=== PATIENT | female | born 1995 | race Caucasian/White ===

== ENCOUNTER 2022-02-25 16:50 | Inpatient (IN) ==
[2022-02-25] MEDS ORDERED: Buffered Lidocaine 1% SYRIN 1 ml INTRADERM ONE (17:21)
[2022-02-25] MEDS ORDERED: Lactated Ringers 1000 ml BAG 1,000 ML IV ONE (17:21)
[2022-02-25] MEDS ORDERED: Lactated Ringers 1000 ml BAG 1,000 ML IV SCH (18:00)
[2022-02-25 18:35] LABS: Urine Appearance Clear; Urine Bilirubin Negative (Negative); Urine Blood Negative (Negative); Urine Color Yellow; Urine Glucose Negative (Negative); Urine Ketones Trace (Negative); Urine Nitrite Negative (Negative); Urine Protein Negative (Negative); Urine Specific Gravity 1.014 (1.002-1.030); Urine Urobilinogen Negative (Negative)
[2022-02-25 18:43] LABS: Urine Benzodiazepine Screen None Detected (None Detect); Urine Cannabinoids Screen None Detected (None Detect); Urine Opiates Screen None Detected (None Detect)
[2022-02-25] MEDS ORDERED: Calcium Carb (TUMS) 500 mg CHEW TAB ONE (22:53)
[2022-02-25] MEDS: Calcium Carb (TUMS) 500 mg CHEW TAB PO SCH (22:55)
[2022-02-25] MEDS ORDERED: Nalbuphine 10 MG/ML 1 ML VIAL IV PRN (23:10)
[2022-02-25] MEDS ORDERED: Promethazine INJ(RESTRICTED) 25 MG/ML 1 ml VIAL IV PRN (23:11)
[2022-02-25] MEDS ORDERED: Morphine 10 MG/ML VIAL (1 ml) IV ONE (23:40)
[2022-02-26] MEDS ORDERED: Ondansetron 4 mg VIAL 2 MG/ML 2 ml VIAL IV PRN (04:00)
[2022-02-26] MEDS ORDERED: OBEPIDURAL (200 ML) 200 ML EPIDURAL ONE (04:43)
[2022-02-26] MEDS ORDERED: Sodium Citrate/Citric Acid LIQ 15 ML UDC PO PRN (06:06)
[2022-02-26] MEDS ORDERED: Phenylephrine 40 mcg/mL 10mL (400mcg) SYRINGE IV PUSH PRN ×2 (06:06)
[2022-02-26] MEDS ORDERED: Lactated Ringers 1000 ml BAG 1,000 ML IV ONE (06:06)
[2022-02-26] MEDS ORDERED: EPHEDrine (Pressors) 50 MG/ML VIAL IV PUSH PRN ×2 (06:06)
[2022-02-26] MEDS ORDERED: OBEPIDURAL (200 ML) 200 ML EPIDURAL SCH (07:00)
[2022-02-26] MEDS ORDERED: Lactated Ringers 1000 ml BAG 1,000 ML IV SCH (07:00)
[2022-02-26] MEDS ORDERED: fentaNYL 100 mcg/2 ml 50 MCG/ML VIAL ONE (08:23)
[2022-02-26] MEDS ORDERED: fentaNYL 100 mcg/2 ml 50 MCG/ML VIAL IV SLOW PU ONE (09:43)
[2022-02-26] MEDS ORDERED: Witch Hazel PAD JAR TOPICAL PRN (14:37)
[2022-02-26] MEDS ORDERED: Glycerin ADULT 2.4 gm SUPP PR PRN (14:37)
[2022-02-26] MEDS ORDERED: Dibucaine 1% OINT 28.35 GM TUBE PR PRN (14:37)
[2022-02-26] MEDS: Calcium Carb (TUMS) 500 mg CHEW TAB PO SCH ×2 (23:02→23:03)
[2022-02-27 06:22] LABS: ABS Basophils 0.1 10^3/ul (0-0.2); ABS Eosinophils 0.1 10^3/ul (0-0.6); ABS Lymphocytes 2.3 10^3/ul (1.0-4.8); ABS Monocytes 1.4 10^3/ul (0-0.8); Eosinophil % 0.9 %; Hematocrit 31 % (35-47); Hemoglobin 10.4 g/dL (12.0-16.0); Lymphocyte % 15.5 %; Mean Corpuscular HGB Conc 34 g/dL (31-36); Mean Corpuscular Hemoglobin 27 pg (27-31); Mean Corpuscular Volume 78 fL (80-97); Mean Platelet Volume 7.8 fL (7.4-10.4); Nucleated Red Blood Cells % 0.1; Platelet Count 270 10^3/uL (150-450); Red Blood Count 3.93 10^6 /uL (3.70-4.87); Red Cell Distribution Width 16 % (10-15); White Blood Count 14.9 10^3/uL (3.5-10.8)
[2022-02-27] MEDS: Calcium Carb (TUMS) 500 mg CHEW TAB PO SCH ×2 (09:07→20:27)
[2022-02-28 09:05] VITALS: BP 132/86
[2022-02-28] MEDS: Calcium Carb (TUMS) 500 mg CHEW TAB PO SCH (10:37)
== END 2022-02-28 13:07 | disposition home or self-care (01) | DRG 807 ==
LOC: MCHOBOUT 16:50 → MCHOB 18:18
PROVIDERS: ADMIT Midwife; ATTEND Midwife